=== PATIENT | male | born 1945 | race Caucasian/White ===

== ENCOUNTER 2020-06-16 11:32 | Inpatient (IN) | payer MEDICARE, SELFPAY ==
--- NOTE | ~2020-06-16 | XR_ITS ---
XR chest 2V DATE: 06/16/2020 13:31 INDICATION: Cough, shortness of breath, fever, dizziness, weakness TECHNIQUE: AP and lateral views COMPARISON: None FINDINGS: Normal heart size. Is aortic calcification, ectasia and tortuosity. No hilar or mediastinal enlargement. There is some ill-defined increased density overlying the posterior right mid lung field; CT thorax i s recommended to exclude any pulmonary mass lesion. The lungs otherwise appear clear of infiltrate or consolidation. No pleural effusion or pulmonary vas cular congestion or pneumothorax. Moderate osteopenia. There is some ossification along the coracoclavicular ligament. There is right r otator cuff atrophy. Degenerative spurring of the thoracic spine. IMPRESSION: Ill-defined increased density overlying the posterior right mid lung; CT thorax is recommended to exc lude pulmonary mass lesion Reviewed, dictated and finalized at location A. IMPRESSION: Ill-defined increased density overlying the posterior right mid lung; CT thorax is recommended to exclude pulmonary mass lesion
--- NOTE | ~2020-06-16 | XR_ITS ---
EXAMINATION: XR chest 1V portable DATE: 06/19/2020 16:32 INDICATION: Shortness of breath. COVID-19 pneumonia. TECHNIQUE: A single frontal view of the chest was obtained. COMPARISON: Chest 2 views 06/16/2020, chest CT 06/16/2020 FINDINGS: There are airspace opacities in right mid and lower lung zones and left lower lung zone. No pleural effusion or pneumothorax. The heart size is normal. IMPRESSION: 1. Worsened airspace opacities in right mid and lower lung zones and left lower lung zone, consistent with pneumonia. Reviewed, dictated and finalized at location A. 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
--- NOTE | ~2020-06-16 | CT_ITS ---
EXAMINATION: CT chest wo con DATE: 06/16/2020 17:40 INDICATION: Dizziness. Lung mass. TECHNIQUE: Computed tomography (CT) of the chest was performed without intravenous contrast. The dose -length product was 380.33 mGy-cm. Automated exposure control and iterative reconstruction technique were employed. COMPARISON: None FINDINGS: Heart size normal. No mediastinal lymphadenopathy. There is atherosclerosis. No pleural or pericardial effusion. There are liver cysts. There is patchy parenchymal consolidation of the upper l obes. There is emphysema. No endobronchial lesions. There is dependent atelectasis. There is subtle g roundglass opacification in the left lower lobe. There are few calcified granulomas of the left lung base. Mild thoracic spondylosis. No acute osseous abnormality. IMPRESSION: 1. Patchy bilateral airspace consolidation, most confluent in the right upper lobe, most likely pneum onia. Reviewed, dictated and finalized at location A. IMPRESSION: 1. Patchy bilateral airspace consolidation, most confluent in the right upper l obe, most likely pneumonia.
--- NOTE | ~2020-06-16 | CT_ITS ---
EXAMINATION: CT brain wo con DATE: 06/16/2020 17:39 INDICATION: Dizziness. Lung mass. TECHNIQUE: Computed tomography (CT) of the head was performed without intravenous contrast. The dose- length product was 681.00 mGy-cm. The mA was adjusted according to patient size. Iterative reconstruc tion technique was employed. COMPARISON: None FINDINGS: Mild atrophy. There are scattered mild periventricular and subcortical white matter changes , most likely related to small vessel ischemic disease (microangiopathy). No ventriculomegaly or midl ine shift. Basilar cisterns are patent. Paranasal sinuses and mastoids are pneumatized. No depressed skull fractures. There is intracranial atherosclerosis. No acute hemorrhage, infarction, mass or mass effect. IMPRESSION: 1. No acute intracranial abnormality. Reviewed, dictated and finalized at location A.
[2020-06-16 12:13] VITALS: BP 145/94; PULSE 96; RESP 18; TEMP 37.4; O2SAT 97
--- NOTE | 2020-06-16 12:18 | ECG_ITS ---
Measurements Intervals [place] Rate: 100 P: 118 KS: 155 QRS: 192 QRSD: 77 T: 164 QT: 327 QTc: 422 Interpretive Statements SINUS TACHYCARDIA SHORT RUN OF ATRIAL TACHYCARDIA AND ATRIAL PREMATURE COMPLEXES ARM LEADS REVERSED BORDERLINE ST-T WAVE ABNORMALITY- ANTEROLAT/INF LEADS BASELINE ARTIFACT- I, III, AVR, AVL, AVF ABNORMAL ECG Electronically Signed On 06-16-2020 12:53:57 CDT by Sin Hernandez D.O.
[2020-06-16 12:33] LABS: Basophils Percent Auto 0.2 % (0.2-1.2); Hematocrit 43.2 % (42.0-52.0); Hemoglobin 15.3 g/dL (14.0-18.0); Immature Granulocyte Absolute 0.02 K/mm3 (0.00-0.031); Immature Granulocyte Percent A 0.4 % (0-0.5); Immature Platelet Fraction Pct 4.3 % (0.9-11.2); Lymphocytes Absolute Auto 1.24 K/mm3 (0.9-3.2); Lymphocytes Percent Auto 27.1 % (18.3-44.2); Mean Corpuscular HGB Conc 35.4 g/dl (32-36); Mean Corpuscular Hemoglobin 31.5 pg (26-34); Mean Corpuscular Volume 89.1 fl (80-100); Mean Platelet Volume 10.5 fl (7.4-10.4); Monocytes Absolute Auto 0.5 K/mm3 (0.1-0.6); Monocytes Percent Auto 11.8 % (2.6-8.5); Neutrophils Absolute Auto 2.8 K/mm3 (1.3-6.7); Neutrophils Percent Auto 60.5 % (45.5-73.1); Platelet Count Result 137 k/mm3 (150-375); Red Blood Count 4.85 M/mm3 (4.6-6.20); Red Cell Distribution Width 13.3 % (11.5-14.5); White Blood Count 4.6 K/mm3 (4.5-10.0)
[2020-06-16 12:42] LABS: Alanine Aminotransferase 27 U/L (4-50); Albumin Level 4.5 g/dL (3.5-5.1); Alkaline Phosphatase 61 U/L (38-126); Anion Gap 13 mmol/L (8-16); Aspartate Amino Transferase 30 U/L (17-59); Bilirubin,Total 0.6 mg/dL (0.2-1.3); Blood Urea Nitrogen 11 mg/dL (9-20); Calcium 9.1 mg/dL (8.4-10.2); Carbon Dioxide 31 mmol/L (22-30); Chloride 100 mmol/L (98-107); Estimated CRCL calculation 59 ml/min; Estimated Glomerular Filt Rate > 60; Glucose 171 mg/dL (75-110); Lactic Acid Reflex 1.1 mmol/L (0.7-2.1); Potassium 3.2 mmol/L (3.4-5.0); Sodium 144 mmol/L (137-145)
--- NOTE | 2020-06-16 15:49 | ED.GENADULT ---
HPI - General Adult General Chief complaint: Weakness Stated complaint: vomiting, weakness Time Seen by Provider: 06/16/20 15:40 Source: patient and family Mode of arrival: ambulatory Limitations: no limitations History of Present Illness HPI narrative: Patient 75 years old white male presents with multiple symptoms including dizziness, everything is pains, headache, diaphoresis, nausea, fever, aches from head to toes, coughing and chills started 4 days ago. Patient denies exposure to anybody known to have COVID-19. Patient lives with his who are doing okay. Patient only goes to grocery stores. History of vertigo Related Data Allergies Allergy/AdvReac Type Severity Reaction Status Date / Time TOLACTINE Allergy Uncoded 10/10/13 18:47 Review of Systems Review of Systems: Narrative: CONSTITUTIONAL: Denies fever, chills, or sweats. EYES: Denies visual changes, redness, or discharge. ENT: Denies rhinorrhea, congestion, sore throat, or otalgia. CARDIOVASCULAR: Denies chest pain, palpitations, or edema. RESPIRATORY: Denies cough or dyspnea. GASTROINTESTINAL: Denies abdominal pain, nausea, vomiting, or diarrhea. GENITOURINARY: Denies dysuria or hematuria. SKIN: Denies rash or itching. MUSCULOSKELETAL: Denies back pain, joint pain, or myalgia. NEUROLOGIC: Denies headache, numbness, or weakness. PSYCHIATRIC: Denies anxiety or depression. PMFSH Social History Social History Gender identity (if verbalized by the patient): Male Exam Narrative: Exam Narrative: General appearance: Well-developed, well-nourished, little anxious, at the bedside Skin: Normal color Head: Normocephalic, nontraumatic Eyes: Clear conjunctiva ENT: Oropharynx normal, ears normal, nose normal Neck: Supple, nontender Chest and respiratory: Airway patent, no respiratory distress, no accessory muscle use Heart: Regular rate/rhythm Abdomen: Soft, nontender, no organomegaly, quiet bowel sounds Vascular: Normal peripheral pulses, normal capillary refill. 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, no gross motor deficit Course Vital Signs Vital signs: Vital Signs Temperature 37.4 C 06/16/20 12:13 Pulse Rate 96 06/16/20 12:13 Respiratory Rate 18 06/16/20 12:13 Blood Pressure 145/94 H 06/16/20 12:13 Pulse Oximetry 97 06/16/20 12:13 Temperature 37.4 C 06/16/20 12:13 Pulse Rate 90 06/16/20 17:18 Respiratory Rate 18 06/16/20 17:18 Blood Pressure 135/64 06/16/20 17:18 Pulse Oximetry 94 06/16/20 17:18 Medical Decision Making Vital Signs Vital Signs: Vital Signs Temperature 37.4 C 06/16/20 12:13 Pulse Rate 96 06/16/20 12:13 Respiratory Rate 18 06/16/20 12:13 Blood Pressure 145/94 H 06/16/20 12:13 Pulse Oximetry 97 06/16/20 12:13 Temperature 37.4 C 06/16/20 12:13 Pulse Rate 90 06/16/20 17:18 Respiratory Rate 18 06/16/20 17:18 Blood Pressure 135/64 06/16/20 17:18 Pulse Oximetry 94 06/16/20 17:18 Lab Data Result diagrams: 06/16/20 12:21 06/16/20 12:21 Labs: Lab Results 06/16/20 06/16/20 06/16/20 Range/Units 12:21 12:21 12:21 WBC 4.6 (4.5-10.0) K/mm3 RBC 4.85 (4.6-6.20) M/mm3 Hgb 15.3 (14.0-18.0) g/dL Hct 43.2 (42.0-52.0) % MCV 89.1 (80-100) fl MCH 31.5 (26-34) pg MCHC 35.4 (32-36) g/dl RDW 13.3 (11.5-14.5) % Plt Count 137 L (150-375) k/mm3 MPV 10.5 H (7.4-10.4) fl Immature Gran % (Auto) 0.4 (0-0.5) % Neut % (Auto) 60.5 (45.5-73.1) % Lymph % (Auto) 27.1 (18.3-44.2) % M
[2020-06-16] MEDS: MECLIZINE HCL 25 MG TABLET PO (16:15)
[2020-06-16] MEDS: diazePAM INJ (*CRX) 10 MG/2 ML SYRINGE 5 MG IV PUSH (16:15)
[2020-06-16] MEDS: ONDANSETRON HCL ODT 4 MG TABLET PO (16:15)
[2020-06-16 17:11] LABS: Troponin I < 0.012 ng/mL (0.000-0.034)
[2020-06-16 17:18] VITALS: BP 135/64; PULSE 90; RESP 18; O2SAT 94
[2020-06-16 18:13] LABS: Add Urine Microscopic? YES; Appearance Urine Clear (Clear); Bilirubin Urine Negative (Negative); Blood Urine Negative (Negative); Color Urine Yellow (Yellow); Glucose Urine UA 1+ mg/dL (Negative); Ketones Urine Negative (Negative); Leukocyte Esterase Ur Negative LEU/UL (Negative); Mucus Urine Few /lpf; Nitrate Urine Negative (Negative); Protein Urine 2+ mg/dL (Negative); Specific Grav Ur 1.018 (1.001-1.035); WBC Urine 0-3 /hpf
[2020-06-16] MEDS: POTASSIUM CHLORIDE 20 MEQ TABLET 40 MEQ PO (19:42)
[2020-06-16 20:40] VITALS: BP 140/86; PULSE 75; RESP 18; O2SAT 95
[2020-06-16 20:45] VITALS: BP 175/97; PULSE 91; RESP 18; TEMP 36.9; O2SAT 96; BMI 30.3
--- NOTE | 2020-06-16 21:08 | PM.IMHP ---
H&P: HPI History of Present Illness Date/Time: 06/16/20 21:08 Chief complaint: body aches, fever and dizziness Narrative: Demond Acevedo is a 75 year old male with a past medical history of benign positional vertigo, obstructive sleep apnea, hypertension and hyperlipidemia who presented to the ER with multiple complaints. The patient reports that 4 days ago he developed sudden onset of vertigo with associated nausea, vomiting and diarrhea. He reports that when he usually gets vertigo he also becomes diaphoretic and lightheaded. On that same day he also developed generalized body aches,, the temperature of 99.2? and a dry nonproductive cough. He also developed a right-sided headache that was only relieved with Excedrin. He has been taking Excedrin b.i.d. to relieve his headache. He has been having chills for 4 days as well. His vertigo symptoms have been intermittent in her worse with activity. He has become so weak that he reports he is having trouble doing anything. He has not had any further diarrhea. He is still having intermittent nausea. He is currently in the area camping. He lives down around [facility]. He has been at his camping trailer for the last 5 days. He denies any known COVID-19 exposures but has been going out to the store and had they necessary stops in route to his camping site for supplies. He denies any chest pain. He denies any significant shortness of breath. He reports that he feels terrible and he thought that he may if he did not come to the ER when he did. He denies any loss of sense of taste or smell. He has had significant decrease in appetite. He has not noticed any visual changes. He has been unable to use his CPAP due to his acute symptoms. He spilled boiling water on his foot a couple of weeks ago. He has been treating it with triple antibiotic ointment. The top of the foot is scabbed but there is no erythema. He denies any drainage from the area. Review of Systems Review of Systems: Narrative: 12 systems were reviewed with pertinent positives and negatives per HPI. Except as documented in the HPI, all other systems were reviewed and are negative. [facility] Past Medical History Medical History (Updated 06/17/20 @ 04:43 by Thais Davenport DO) Abdominal aortic aneurysm (AAA) Followed at the [facility] Cataracts, bilateral Will need cataract surgery in the near future per his report Essential hypertension Hyperlipidemia Incisional hernia Left abdominal wall Obstructive sleep apnea Surgical History Surgical History (Updated 06/17/20 @ 04:34 by Thais Davenport DO) History of ankle surgery Multiple left ankle surgeries due to trauma complicated by reflex sympathetic dystrophy for which he had a open abdominal surgery History of hand surgery Following trauma during the [place] war History of lumbar surgery Family History Family History (Updated 06/17/20 @ 04:37 by Thais Davenport DO) Father , At 60 years old Acute myocardial infarction Hypertension Lung cancer Mother , At 64 years old Hypertension Lung cancer Breast cancer Sibling Liver disease Due to drug use Heart disease Cancer Social History Social History (Updated 06/17/20 @ 04:41 by Thais Davenport DO) Social History: He lives in in [facility]. He and his had been for over 20 years. He moved back in with his in the last couple of years to help provide care she is disabled. He has 1 daughter. He is a former smoker. He used to smoke up to 2 packs of cigarettes per day for 20 years but quit smoking in the . 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 He had 3 siblings. Two sisters and 1 brother all are . Primary care physician: [facility] in [facility]. Code status: Full code Surrogate decision maker: Izabel Kaur (daughter)
[2020-06-16] MEDS: LACTATED RINGERS 1,000 ML 125 ML IV CONT (21:19)
--- NOTE | 2020-06-16 21:36 | ADMGEN ---
This patient, Demond Acevedo, was admitted to 3 [facility] Surg Room 332-01. Patient/family oriented to hospital policies and general routines including ID bracelet, bed and alarms, visiting hours, pain management, procedures, bathroom and other care routines, personal items, smoking policy, room service/diet, and visiting hours. Information on how to activate the Rapid Response Team has been discussed. Patient/Family are encouraged to report perceived risks to care and to ask questions if they do not understand what they are told or what they should do.
[2020-06-17] VITALS (10 sets, daily range): BP systolic 101–156; BP diastolic 68–91; PULSE 83–95; RESP 18; TEMP 36.3–37.9; O2SAT 92–96
[2020-06-17] MEDS: MECLIZINE HCL 25 MG TABLET PO (01:38)
[2020-06-17 01:41] LABS: Influenza Control Positive
[2020-06-17] MEDS: LACTATED RINGERS 1,000 ML 125 ML IV CONT ×3 (05:35→23:26)
[2020-06-17 06:17] LABS: Hematocrit 40.2 % (42.0-52.0); Hemoglobin 14.2 g/dL (14.0-18.0); Immature Platelet Fraction Pct 3.7 % (0.9-11.2); Mean Corpuscular HGB Conc 35.3 g/dl (32-36); Mean Corpuscular Hemoglobin 30.7 pg (26-34); Mean Corpuscular Volume 86.8 fl (80-100); Mean Platelet Volume 10.7 fl (7.4-10.4); Platelet Count Result 108 k/mm3 (150-375); Red Blood Count 4.63 M/mm3 (4.6-6.20); Red Cell Distribution Width 13.1 % (11.5-14.5); White Blood Count 4.5 K/mm3 (4.5-10.0)
[2020-06-17 06:28] LABS: Anion Gap 7 mmol/L (8-16); Blood Urea Nitrogen 13 mg/dL (9-20); Calcium 8.1 mg/dL (8.4-10.2); Carbon Dioxide 28 mmol/L (22-30); Chloride 102 mmol/L (98-107); Estimated CRCL calculation 71 ml/min; Estimated Glomerular Filt Rate > 60; Glucose 154 mg/dL (75-110); Potassium 3.6 mmol/L (3.4-5.0); Sodium 137 mmol/L (137-145)
[2020-06-17] MEDS: ENOXAPARIN 40 MG/0.4 ML SYRINGE SUB-Q (07:57)
[2020-06-17] MEDS: lisinopriL 20 MG TABLET 40 MG PO (07:57)
[2020-06-17] MEDS: amLODIPine BESYLATE 5 MG TABLET 10 MG PO (07:57)
[2020-06-17] MEDS: SILVER SULFADIAZINE 1% CR 50 GM JAR (*BKC) 1 APPLIC TOPICAL ×2 (07:58→21:29)
[2020-06-17] MEDS: ALBUTEROL SULFATE (*SP) AEROSOL 1 PUFF 6 PUFF INHALATION ×4 (08:50→20:29)
[2020-06-17] MEDS: ACETAMINOPHEN 325 MG TABLET 650 MG PO (09:57)
--- NOTE | 2020-06-17 10:13 | PM.IMPN ---
Progress Note: A&P Assessment and Plan (1) Pneumonia: Qualifiers: Laterality: bilateral Lung location: unspecified part of lung Pneumonia type: due to unspecified organism Qualified Code(s): J18.9 - Pneumonia, unspecified organism Code(s): J18.9 - Pneumonia, unspecified organism Status: Acute Assessment and Plan: Day #1 azithromycin and ceftriaxone Flu A negative SARS-CoV-2 pending Continue isolation (2) Acute hypokalemia: Code(s): E87.6 - Hypokalemia Status: Acute Assessment and Plan: resolved after supplementation (3) Vertigo: Code(s): R42 - Dizziness and giddiness Status: Acute Assessment and Plan: resolved (4) Wound of left foot: Code(s): S91.302A - Unspecified open wound, left foot, initial encounter Status: Acute Assessment and Plan: superficial no evidence for infection (5) Essential hypertension: Code(s): I10 - Essential (primary) hypertension Status: Inactive Assessment and Plan: Continue amlodipine and lisinopril Monitor Subjective Date/time seen: 06/17/20 10:13 Interval history: 06/17: Feeling better. No much appetite. Ate only oatmeal for breakfast. Tired. Not much taste to food. No n/v, diarrhea. Denied pain. Review of Systems Review of Systems: All systems reviewed & are unremarkable except as noted in HPI and below Exam Narrative: Exam Narrative: HEENT: EOMI, PERRL, sclerae nonicteric, pharyngeal mucosa pink and intact NECK: No JVD, adenopathy, or thyromegaly CHEST: Slighly coarse BS. Normal effort. HEART: NL S1/S2, regular, no murmur ABDOMEN: BS+, soft, nontender, no mass, no bruits EXTREMITIES: No cyanosis, edema, or clubbing NEUROLOGIC: CN intact and symmetric to inspection. MUSCULOSKELETAL: Tone and strength symmetric. PSYCH: Alert. Oriented to person, place, and time. Objective Data Vital Signs Vital Signs: Vital Signs - 24 hr 06/16/20 12:13 06/16/20 17:18 06/16/20 20:40 Temperature 99.4 F Pulse Rate 96 90 75 Respiratory Rate 18 18 18 Blood Pressure 145/94 H 135/64 140/86 Pulse Oximetry 97 94 95 06/16/20 20:45 06/17/20 00:00 06/17/20 04:00 Temperature 98.4 F 98.4 F 98.3 F Pulse Rate 91 95 90 Respiratory Rate 18 18 18 Blood Pressure 175/97 H 146/84 H 156/91 H Pulse Oximetry 96 92 95 06/17/20 08:00 06/17/20 08:55 06/17/20 09:57 Temperature 100.2 F H 100.3 F H Pulse Rate 88 Respiratory Rate 18 Blood Pressure 133/86 Pulse Oximetry 96 93 Intake/Output Intake/Output: Intake & Output 06/14/20 06/15/20 06/16/20 06/17/20 23:59 23:59 23:59 23:59 Intake Total 50 1150 Output Total 450 Balance 50 700 Meds/Results Medications: Active Medications Generic Name Dose Route Start Last Admin Trade Name Freq PRN Reason Stop Dose Admin Acetaminophen 650 mg 06/17/20 04:23 06/17/20 09:57 Acetaminophen 325 Mg Tablet PO 650 mg Q4H PRN Administration Mild Pain (1-3) or Fever Albuterol 6 puff 06/17/20 08:00 06/17/20 08:50 Albuterol Sulfate (*Sp) Aerosol 1 Puff INHALATION 6 puff QIDRT YA Administration Amlodipine Besylate 10 mg 06/17/20 09:00 06/17/20 07:57 Amlodipine Besylate 5 Mg Tablet PO 10 mg DAILY YA Administration Atorvastatin Calcium 40 mg 06/17/20 21:00 Atorvastatin 40 Mg Tablet PO HS YA Enoxaparin Sodium 40 mg 06/17/20 09:00 06/17/20 07:57 Enoxaparin 40 Mg/0.4 Ml Syringe SUB-Q 40 mg DAILY YA Administration Lactated Ringer's 1,000 mls @ 125 mls/hr 06/16/20 18:50 06/17/20 05:35 Lr - Lactated Ringers Iv IV CONT 125 mls/hr .Q8H YA Administration Ceftriaxone Sodium/Dextrose 1 gm in 50 mls @ 100 mls/hr 06/17/20 19:00 Rocephin 1 Gm/D5w 50 Ml IVPB DAILY@1900 [facility] Azithromycin 500 mg in 250 mls @ 250 mls/hr 06/17/20 20:00 Zithromax IVPB DAILY@2000 [facility] Lisinopril 20 mg 06/17/20 21:00 Lisinopril 20 Mg Tablet PO
[2020-06-17 15:24] LABS: SARS-CoV-2 RNA PCR Positive
[2020-06-17] MEDS: ATORVASTATIN 40 MG TABLET PO (21:03)
[2020-06-17] MEDS: lisinopriL 20 MG TABLET PO (21:03)
[2020-06-18] VITALS (11 sets, daily range): BP systolic 139–170; BP diastolic 43–96; PULSE 80–98; RESP 18–24; TEMP 36.6–38.8; O2SAT 90–96
--- NOTE | 2020-06-18 01:49 | PC.NURSE ---
Daylight Savings Time For Daylight Savings Time Ending in the Fall - Clocks are moved back. For Daylight Savings Time Beginning in the Spring - Clocks are moved ahead. For [facility], the time of change occurs at 0200 hrs. Time is taken from the oil prospecting observer. This entry on the patient's chart recognizes the change in time reflected during documentation. Example: 2 entries for vital signs may be charted for 0200 hrs.
[2020-06-18] MEDS: LACTATED RINGERS 1,000 ML 125 ML IV CONT (05:01)
[2020-06-18] MEDS: MECLIZINE HCL 12.5 MG TABLET PO (05:41)
[2020-06-18 06:30] LABS: Basophils Percent Auto 0.2 % (0.2-1.2); Eosinophils Percent Auto 0.2 % (0-4.4); Hematocrit 37.6 % (42.0-52.0); Hemoglobin 13.4 g/dL (14.0-18.0); Immature Granulocyte Absolute 0.01 K/mm3 (0.00-0.031); Immature Granulocyte Percent A 0.2 % (0-0.5); Immature Platelet Fraction Pct 4.3 % (0.9-11.2); Lymphocytes Absolute Auto 1.25 K/mm3 (0.9-3.2); Lymphocytes Percent Auto 28.3 % (18.3-44.2); Mean Corpuscular HGB Conc 35.6 g/dl (32-36); Mean Corpuscular Hemoglobin 31.2 pg (26-34); Mean Corpuscular Volume 87.6 fl (80-100); Mean Platelet Volume 10.7 fl (7.4-10.4); Monocytes Absolute Auto 0.4 K/mm3 (0.1-0.6); Monocytes Percent Auto 8.4 % (2.6-8.5); Neutrophils Absolute Auto 2.8 K/mm3 (1.3-6.7); Neutrophils Percent Auto 62.7 % (45.5-73.1); Platelet Count Result 108 k/mm3 (150-375); Red Blood Count 4.29 M/mm3 (4.6-6.20); White Blood Count 4.4 K/mm3 (4.5-10.0)
[2020-06-18 06:40] LABS: D Dimer 2.64 ug/mL (<0.48)
[2020-06-18 06:48] LABS: Alanine Aminotransferase 22 U/L (4-50); Albumin Level 3.4 g/dL (3.5-5.1); Alkaline Phosphatase 54 U/L (38-126); Anion Gap 9 mmol/L (8-16); Aspartate Amino Transferase 29 U/L (17-59); Bilirubin,Total 0.6 mg/dL (0.2-1.3); Blood Urea Nitrogen 12 mg/dL (9-20); CRP 3.2 mg/dL (<1.0); Calcium 8.1 mg/dL (8.4-10.2); Carbon Dioxide 28 mmol/L (22-30); Chloride 100 mmol/L (98-107); Estimated CRCL calculation 64 ml/min; Estimated Glomerular Filt Rate > 60; Glucose 206 mg/dL (75-110); Lactate Dehydrogenase 491 U/L (313-618); Sodium 137 mmol/L (137-145)
[2020-06-18 08:13] LABS: Hemoglobin A1C 6.5 % (<5.7)
[2020-06-18] MEDS: POTASSIUM CHLORIDE 20 MEQ TABLET 40 MEQ PO (08:25)
[2020-06-18] MEDS: SILVER SULFADIAZINE 1% CR 50 GM JAR (*BKC) 1 APPLIC TOPICAL ×2 (08:25→20:59)
[2020-06-18] MEDS: ENOXAPARIN 40 MG/0.4 ML SYRINGE SUB-Q (08:25)
[2020-06-18] MEDS: amLODIPine BESYLATE 5 MG TABLET 10 MG PO (08:26)
[2020-06-18] MEDS: lisinopriL 20 MG TABLET 40 MG PO (08:26)
[2020-06-18] MEDS: INSULIN ASPART (*BKC) 100 UNITS/ML SUB-Q (08:32)
[2020-06-18] MEDS: ACETAMINOPHEN 325 MG TABLET 650 MG PO ×2 (08:35→16:43)
[2020-06-18] MEDS: ALBUTEROL SULFATE (*SP) AEROSOL 1 PUFF 6 PUFF INHALATION ×3 (09:46→20:40)
--- NOTE | 2020-06-18 13:53 | PM.IMPN ---
Progress Note: A&P Assessment and Plan (1) Pneumonia due to COVID-19 virus: Code(s): U07.1 - COVID-19; J12.89 - Other viral pneumonia Status: Acute Assessment and Plan: -----Found to be covid positive so abx have been stopped. He is not having any SOB or requiring any o2. No indication for Remdesivir or Decadron at this time but will monitor his oxygen needs. I spoke with the daughter, Izabel, about him possibly being discharged the next day or 2 since he is not on oxygen and she states they live a couple hours away and she is unable to pick him up because she is immunocompromised. The patient does not think he is strong enough to drive back to [place], [place]. He has a camper here but he just when her eyes did and does not have any running water. The daughter is going to try to make arrangements (2) Generalized weakness: Code(s): R53.1 - Weakness Status: Acute Assessment and Plan: -----will order PT and OT (3) Pneumonia: Qualifiers: Laterality: bilateral Lung location: unspecified part of lung Pneumonia type: due to unspecified organism Qualified Code(s): J18.9 - Pneumonia, unspecified organism Code(s): J18.9 - Pneumonia, unspecified organism Status: Acute Assessment and Plan: -----due to above (4) Acute hypokalemia: Code(s): E87.6 - Hypokalemia Status: Acute Assessment and Plan: ------low again today, replaced. Monitor with daily labs. (5) Vertigo: Code(s): R42 - Dizziness and giddiness Status: Acute Assessment and Plan: -------resolved (6) Wound of left foot: Code(s): S91.302A - Unspecified open wound, left foot, initial encounter Status: Acute Assessment and Plan: -------superficial, no evidence for infection (7) Essential hypertension: Code(s): I10 - Essential (primary) hypertension Status: Inactive Assessment and Plan: -----last blood pressure 139/72. Continue amlodipine and lisinopril Time Spent With Patient Time with patient: 25 - 35 minutes Subjective Date/time seen: 06/18/20 13:53 Interval history: Pt is a 75 y/o male here for COVID. Pt was seen today and is doing fairely well. He feels really weak and tired but denies respiratory symptoms. He states he is not from this area and lives in [place], [place] and has to drive back there after discharge and he is worried he is going to be too weak for that. No cp. eating and drinking well. Review of Systems Review of Systems: All systems reviewed & are unremarkable except as noted in HPI and below Exam Narrative: Exam Narrative: General: Well developed well nourished patient in NAD HEENT: normocephalic Neck: supple Neuro: Alert and oriented x4 CV:RRR Resp:CTA. Note a disposable stethoscope was used which lowers sensativity. Abd: Soft, non distended. No pain to palpation. Positive bowel sounds Extremities: No swelling, erythema, or pain to palpation. Objective Data Vital Signs Vital Signs: Vital Signs - 24 hr 06/17/20 16:00 06/17/20 20:00 06/17/20 20:30 Temperature 97.4 F L 98.2 F Pulse Rate 88 95 87 Respiratory Rate 18 18 18 Blood Pressure 125/68 141/84 H Pulse Oximetry 95 92 96 06/18/20 00:00 06/18/20 04:00 06/18/20 08:00 Temperature 98 F 98.3 F 100.3 F H Pulse Rate 91 94 92 Respiratory Rate 18 18 18 Blood Pressure 149/43 H 170/83 H 160/80 H Pulse Oximetry 93 92 92 06/18/20 08:35 06/18/20 09:35 06/18/20 12:00 Temperature 100.3 F H 98.3 F 98.3 F Pulse Rate 88 Respiratory Rate 18 Blood Pressure 139/72 Pulse Oximetry 95 Intake/Output Intake/Output: Intake & Output 06/15/20 06/16/20 06/17/20 06/18/20 23:59 23:59 23:59 22:59 Intake Total 50 4260 1899 Output Total 450 1350 Balance 50 3810 549 Meds/Results Medications: Active Medications Generic Name Dose Route Start Last Admin Trade Name Delfinoq ILDAN Reas
[2020-06-18 15:03] LABS: Glucose Point of Care 174 (65-105)
[2020-06-18 16:26] LABS: Glucose Point of Care 218 (65-105)
[2020-06-18 17:43] LABS: Glucose Point of Care 149 (65-105)
[2020-06-18] MEDS: ONDANSETRON INJ 4 MG/2 ML VIAL IV PUSH (18:36)
[2020-06-18] MEDS: ATORVASTATIN 40 MG TABLET PO (20:59)
[2020-06-18] MEDS: lisinopriL 20 MG TABLET PO (20:59)
[2020-06-18 21:31] LABS: Glucose Point of Care 185 (65-105)
--- NOTE | 2020-06-18 22:17 | PC.NURSE ---
Patient reported he was having difficulty breathing. Oxygen saturation 83% on room air. Nasal canula placed at 2 liters brought oxygen saturation up to 89%. Oxygen increased to 3 liters. Oxygen saturation at 3 liters 94%.
[2020-06-19] VITALS (9 sets, daily range): BP systolic 140–178; BP diastolic 73–86; PULSE 51–105; RESP 18–22; TEMP 36.7–38.8; O2SAT 88–96
[2020-06-19] MEDS: ONDANSETRON INJ 4 MG/2 ML VIAL IV PUSH ×2 (02:10→10:57)
[2020-06-19] MEDS: ACETAMINOPHEN 325 MG TABLET 650 MG PO (02:56)
--- NOTE | 2020-06-19 03:15 | PC.NURSE ---
Patient took off oxygen. Oxygen saturation 94% on room air. Patient requested to be off oxygen unless his saturation level dropped again. Patient left on room air. Will continue to monitor.
[2020-06-19 06:42] LABS: Hematocrit 37.7 % (42.0-52.0); Hemoglobin 13.4 g/dL (14.0-18.0); Immature Platelet Fraction Pct 5.8 % (0.9-11.2); Mean Corpuscular HGB Conc 35.5 g/dl (32-36); Mean Corpuscular Hemoglobin 31.5 pg (26-34); Mean Corpuscular Volume 88.7 fl (80-100); Mean Platelet Volume 10.6 fl (7.4-10.4); Platelet Count Result 103 k/mm3 (150-375); Red Blood Count 4.25 M/mm3 (4.6-6.20); White Blood Count 4.3 K/mm3 (4.5-10.0)
[2020-06-19 06:59] LABS: Alanine Aminotransferase 22 U/L (4-50); Albumin Level 3.7 g/dL (3.5-5.1); Alkaline Phosphatase 48 U/L (38-126); Anion Gap 8 mmol/L (8-16); Aspartate Amino Transferase 34 U/L (17-59); Bilirubin,Total 0.6 mg/dL (0.2-1.3); Blood Urea Nitrogen 13 mg/dL (9-20); Calcium 8.1 mg/dL (8.4-10.2); Carbon Dioxide 29 mmol/L (22-30); Chloride 100 mmol/L (98-107); Estimated CRCL calculation 59 ml/min; Estimated Glomerular Filt Rate > 60; Glucose 223 mg/dL (75-110); Potassium 3.2 mmol/L (3.4-5.0); Sodium 137 mmol/L (137-145)
[2020-06-19] MEDS: ALBUTEROL SULFATE (*SP) AEROSOL 1 PUFF 6 PUFF INHALATION ×4 (08:45→21:33)
[2020-06-19] MEDS: lisinopriL 20 MG TABLET 40 MG PO (09:27)
[2020-06-19] MEDS: amLODIPine BESYLATE 5 MG TABLET 10 MG PO (09:27)
[2020-06-19] MEDS: ENOXAPARIN 40 MG/0.4 ML SYRINGE SUB-Q (09:28)
[2020-06-19] MEDS: SILVER SULFADIAZINE 1% CR 50 GM JAR (*BKC) 1 APPLIC TOPICAL ×2 (09:35→20:10)
--- NOTE | 2020-06-19 11:03 | PM.IMPN ---
Progress Note: A&P Assessment and Plan (1) Pneumonia due to COVID-19 virus: Code(s): U07.1 - COVID-19; J12.89 - Other viral pneumonia Status: Acute Assessment and Plan: -----COVID positive, not on any o2 at this time. The nursing staff state that he usually uses a cpap at night so he does desat a bit at night but doesn't want to wear o2. I have explained to him the importance. When he is awake he does not require o2. He is not having any SOB, CP, or DEL VAL[place]. No indication for Remdesivir or Decadron at this time but will monitor his oxygen needs. I spoke with the daughter, Izabel, about him possibly being discharged the next day or 2 since he is not on oxygen and she states they live a couple hours away and she is unable to pick him up because she is immunocompromised. The patient does not think he is strong enough to drive back to [place], [place]. He has a camper here but just winterized it and does not have any running water. The daughter is going to try to make arrangements. (2) Generalized weakness: Code(s): R53.1 - Weakness Status: Acute Assessment and Plan: -----Pt states he feels very weak, PT note reviewed and looks like he is min assist. Continue with PT. (3) Pneumonia: Qualifiers: Laterality: bilateral Lung location: unspecified part of lung Pneumonia type: due to unspecified organism Qualified Code(s): J18.9 - Pneumonia, unspecified organism Code(s): J18.9 - Pneumonia, unspecified organism Status: Acute Assessment and Plan: -----due to above (4) Acute hypokalemia: Code(s): E87.6 - Hypokalemia Status: Acute Assessment and Plan: ------low again today, replaced. Likely d/t decreased appetite. will order mag for tomorrow. Monitor with daily labs. (5) Vertigo: Code(s): R42 - Dizziness and giddiness Status: Acute Assessment and Plan: -------resolved (6) Wound of left foot: Code(s): S91.302A - Unspecified open wound, left foot, initial encounter Status: Acute Assessment and Plan: -------superficial, no evidence for infection (7) Essential hypertension: Code(s): I10 - Essential (primary) hypertension Status: Inactive Assessment and Plan: -----last blood pressure 149/73. Continue amlodipine and lisinopril Subjective Date/time seen: 06/19/20 11:03 Interval history: Pt is a 75 y/o male here for COVID. Pt was seen today and is doing fairely well. He feels really weak and tired but denies respiratory symptoms. No CP. He was throwing up last night. He said it took 3 people to get him out of bed and usually he is independent. He says at times he feels as if the room is spinning and he gets very dizzy. He is still not eating much. He states he is not from this area and lives in [place], [place] and has to drive back there after discharge and he is worried he is going to be too weak for that. Spoke with daughter, izabel, who is going to try and find accommodations here. She is unable to come get him because she is immunosupressed herself. Exam Narrative: Exam Narrative: General: Well developed well nourished patient in NAD HEENT: normocephalic Neck: supple Neuro: Alert and oriented x4 CV:RRR Resp:CTA. Note a disposable stethoscope was used which lowers sensativity. Abd: Soft, non distended. No pain to palpation. Positive bowel sounds Extremities: No swelling, erythema, or pain to palpation. Objective Data Vital Signs Vital Signs: Vital Signs - 24 hr 06/18/20 12:00 06/18/20 16:00 06/18/20 16:43 Temperature 98.3 F 101.8 F H 101.8 F H Pulse Rate 88 98 Respiratory Rate 18 20 Blood Pressure 139/72 152/96 H Pulse Oximetry 95 96 06/18/20 17:43 06/18/20 20:00 06/18/20 20:40 Temperature 100.3 F H 98.2 F Pulse Rate 80 92 Respiratory Rate 18 24 H Blood Pressure 153/92 H Pulse Oximetry 91 90 06/19/20 00:00 06/19/20
[2020-06-19 12:23] LABS: Glucose Point of Care 193 (65-105)
[2020-06-19] MEDS: POTASSIUM CHLORIDE 20 MEQ TABLET 40 MEQ PO (12:33)
[2020-06-19 12:45] LABS: Glucose Point of Care 174 (65-105)
[2020-06-19] MEDS: MECLIZINE HCL 12.5 MG TABLET PO (14:47)
[2020-06-19 17:28] LABS: Glucose Point of Care 223 (65-105)
[2020-06-19] MEDS: REMDESIVIR 200 MG/NS 250 ML 200 MG/250 ML BAG 175 MG IVPB (17:37)
[2020-06-19] MEDS: INSULIN ASPART (*BKC) 100 UNITS/ML SUB-Q (17:38)
[2020-06-19] MEDS: DEXAMETHASONE SOD PHOS INJ 4 MG/ML VIAL 6 MG IV PUSH (17:38)
[2020-06-19] MEDS: ATORVASTATIN 40 MG TABLET PO (20:04)
[2020-06-19] MEDS: lisinopriL 20 MG TABLET PO (20:04)
[2020-06-19 21:00] LABS: Glucose Point of Care 234 (65-105)
[2020-06-20] VITALS (8 sets, daily range): BP systolic 130–142; BP diastolic 70–89; PULSE 63–96; RESP 18–20; TEMP 36.4–37; O2SAT 91–93
[2020-06-20 06:33] LABS: Hematocrit 39.2 % (42.0-52.0); Immature Granulocyte Absolute 0.01 K/mm3 (0.00-0.031); Immature Granulocyte Percent A 0.2 % (0-0.5); Immature Platelet Fraction Pct 7.1 % (0.9-11.2); Mean Corpuscular HGB Conc 35.7 g/dl (32-36); Mean Corpuscular Hemoglobin 31.4 pg (26-34); Mean Corpuscular Volume 87.9 fl (80-100); Mean Platelet Volume 11.3 fl (7.4-10.4); Monocytes Absolute Auto 0.4 K/mm3 (0.1-0.6); Monocytes Percent Auto 6.7 % (2.6-8.5); Neutrophils Absolute Auto 4.2 K/mm3 (1.3-6.7); Neutrophils Percent Auto 75.1 % (45.5-73.1); Platelet Count Result 115 k/mm3 (150-375); Red Blood Count 4.46 M/mm3 (4.6-6.20); Red Cell Distribution Width 12.8 % (11.5-14.5); White Blood Count 5.6 K/mm3 (4.5-10.0)
[2020-06-20 06:41] LABS: Alanine Aminotransferase 22 U/L (4-50); Albumin Level 3.6 g/dL (3.5-5.1); Alkaline Phosphatase 46 U/L (38-126); Anion Gap 10 mmol/L (8-16); Aspartate Amino Transferase 38 U/L (17-59); Bilirubin,Total 0.5 mg/dL (0.2-1.3); Blood Urea Nitrogen 16 mg/dL (9-20); Calcium 8.1 mg/dL (8.4-10.2); Carbon Dioxide 28 mmol/L (22-30); Chloride 100 mmol/L (98-107); Estimated CRCL calculation 59 ml/min; Estimated Glomerular Filt Rate > 60; Glucose 245 mg/dL (75-110); Potassium 3.6 mmol/L (3.4-5.0); Sodium 138 mmol/L (137-145)
[2020-06-20] MEDS: ALBUTEROL SULFATE (*SP) AEROSOL 1 PUFF 6 PUFF INHALATION ×4 (08:35→20:49)
[2020-06-20] MEDS: lisinopriL 20 MG TABLET 40 MG PO (08:42)
[2020-06-20] MEDS: amLODIPine BESYLATE 5 MG TABLET 10 MG PO (08:42)
[2020-06-20] MEDS: DEXAMETHASONE SOD PHOS INJ 4 MG/ML VIAL 6 MG IV PUSH (08:48)
[2020-06-20] MEDS: ENOXAPARIN 40 MG/0.4 ML SYRINGE SUB-Q (08:48)
[2020-06-20] MEDS: SILVER SULFADIAZINE 1% CR 50 GM JAR (*BKC) 1 APPLIC TOPICAL ×2 (08:51→21:38)
[2020-06-20] MEDS: INSULIN ASPART (*BKC) 100 UNITS/ML SUB-Q ×3 (08:56→17:33)
[2020-06-20 10:05] LABS: Glucose Point of Care 233 (65-105)
[2020-06-20 12:04] LABS: Glucose Point of Care 228 (65-105)
--- NOTE | 2020-06-20 16:46 | PM.IMPN ---
Progress Note: A&P Assessment and Plan (1) Pneumonia due to COVID-19 virus: Code(s): U07.1 - COVID-19; J12.89 - Other viral pneumonia Status: Acute Assessment and Plan: COVID positive 06/16/20. CT shows patchy bilateral airspace disease. Therapy initiated last night when he became hypoxic. Continue remdesivir (day 2) and dexamethasone (day 2). Continue supportive therapy with tylenol for fevers, albuterol. Monitor oxygen saturations. Add incentive spirometry. (2) Acute respiratory failure: Qualifiers: Respiratory failure complication: hypoxia Qualified Code(s): J96.01 - Acute respiratory failure with hypoxia Code(s): J96.00 - Acute respiratory failure, unspecified whether with hypoxia or hypercapnia Status: Acute Assessment and Plan: Secondary to above. Wean O2 as tolerated to keep saturations > 90%. (3) Generalized weakness: Code(s): R53.1 - Weakness Status: Acute Assessment and Plan: Suspect secondary to above. Continue PT/OT. (4) Acute hypokalemia: Code(s): E87.6 - Hypokalemia Status: Acute Assessment and Plan: Stable today. Monitor BMP + Mg and replace as needed. (5) Essential hypertension: Code(s): I10 - Essential (primary) hypertension Status: Chronic Assessment and Plan: Stable, last 140/80 maintained on his home amlodipine and lisinopril. Monitor BP and adjust treatment as needed. (6) Discharge planning issues: Code(s): Z02.9 - Encounter for administrative examinations, unspecified Status: Acute Assessment and Plan: Patient lives in [place], [place]. Daughter notes she is unable to transport him home at discharge due to him being COVID positive and her being immunosuppressed. Patient and family will need to work together to arrange someone to transport him home. Subjective Date/time seen: 06/20/20 1215 Interval history: Mr. Acevedo is a 75yo M admitted for acute respiratory failure with hypoxia secondary to COVID-19. He feels weak and tired. He reports his breathing feels bad today. He denies chest pain. He has tolerated some oral intake without nausea or vomiting. Review of Systems Review of Systems: All systems reviewed & are unremarkable except as noted in HPI and below Exam Narrative: Exam Narrative: General: Male sitting on edge of bed working with therapy in no acute distress. HEENT: Normocephalic, EOMI, oral mucosa moist. Cardiovascular: Rate and rhythm are regular. Respiratory: Decreased breath sounds AIDA. Respirations are even and nonlabored. Tolerating 2 L nasal cannula. Abdomen: Soft, non-tender, non-distended, bowel sounds present. Extremities: Peripheral pulses intact. No edema. Neuro: No focal neurological deficits. Speech is clear. Objective Data Vital Signs Vital Signs: Last Vital Signs Temp 98.3 F 06/20/20 16:00 Pulse 63 06/20/20 16:00 Resp 18 06/20/20 16:00 BP 140/80 06/20/20 16:00 Pulse Ox 92 06/20/20 16:00 Intake/Output Intake/Output: Intake & Output 06/18/20 06/18/20 06/19/20 06/20/20 00:59 23:59 23:59 23:59 Intake Total 1700 880 Output Total 1275 900 Balance 425 -20 Meds/Results Medications: Active Medications Generic Name Dose Route Start Last Admin Trade Name Freq PRN Reason Stop Dose Admin Acetaminophen 650 mg 06/17/20 04:23 06/19/20 02:56 Acetaminophen 325 Mg Tablet PO 650 mg Q4H PRN Administration Mild Pain (1-3) or Fever Albuterol 6 puff 06/17/20 08:00 06/20/20 15:56 Albuterol Sulfate (*Sp) Aerosol 1 Puff INHALATION 6 puff QIDRT YA Administration Amlodipine Besylate 10 mg 06/17/20 09:00 06/20/20 08:42 Amlodipine Besy
[2020-06-20] MEDS: REMDESIVIR 100 MG/NS 250 ML 100 MG/250 ML BAG 250 MG IVPB (17:25)
[2020-06-20 18:07] LABS: Glucose Point of Care 285 (65-105)
[2020-06-20] MEDS: lisinopriL 20 MG TABLET PO (21:34)
[2020-06-20] MEDS: ATORVASTATIN 40 MG TABLET PO (21:34)
--- NOTE | 2020-06-20 21:43 | PC.NURSE ---
Pt glucose 61, refused gel. Gave apple juice
[2020-06-20 21:52] LABS: Glucose Point of Care 61 (65-105)
[2020-06-20 22:37] LABS: Glucose Point of Care 287 (65-105)
[2020-06-21] VITALS (9 sets, daily range): BP systolic 114–166; BP diastolic 56–92; PULSE 52–94; RESP 18–20; TEMP 36.4–36.7; O2SAT 91–100
[2020-06-21] MEDS: ACETAMINOPHEN 325 MG TABLET 650 MG PO (04:30)
[2020-06-21 06:28] LABS: Hematocrit 40.4 % (42.0-52.0); Hemoglobin 14.4 g/dL (14.0-18.0); Immature Granulocyte Absolute 0.02 K/mm3 (0.00-0.031); Immature Granulocyte Percent A 0.3 % (0-0.5); Lymphocytes Absolute Auto 1.33 K/mm3 (0.9-3.2); Mean Corpuscular HGB Conc 35.6 g/dl (32-36); Mean Corpuscular Volume 87.1 fl (80-100); Mean Platelet Volume 11.4 fl (7.4-10.4); Monocytes Absolute Auto 0.5 K/mm3 (0.1-0.6); Monocytes Percent Auto 7.4 % (2.6-8.5); Neutrophils Absolute Auto 5.1 K/mm3 (1.3-6.7); Neutrophils Percent Auto 73.3 % (45.5-73.1); Platelet Count Result 143 k/mm3 (150-375); Red Blood Count 4.64 M/mm3 (4.6-6.20); Red Cell Distribution Width 12.7 % (11.5-14.5)
[2020-06-21 06:47] LABS: Alanine Aminotransferase 24 U/L (4-50); Albumin Level 3.5 g/dL (3.5-5.1); Alkaline Phosphatase 48 U/L (38-126); Anion Gap 9 mmol/L (8-16); Aspartate Amino Transferase 39 U/L (17-59); Bilirubin,Total 0.6 mg/dL (0.2-1.3); Blood Urea Nitrogen 20 mg/dL (9-20); CRP 5.8 mg/dL (<1.0); Calcium 8.2 mg/dL (8.4-10.2); Carbon Dioxide 28 mmol/L (22-30); Chloride 100 mmol/L (98-107); Estimated CRCL calculation 64 ml/min; Estimated Glomerular Filt Rate > 60; Glucose 198 mg/dL (75-110); Lactate Dehydrogenase 851 U/L (313-618); Magnesium 2.1 mg/dL (1.6-2.3); Potassium 3.4 mmol/L (3.4-5.0); Sodium 137 mmol/L (137-145)
[2020-06-21] MEDS: amLODIPine BESYLATE 5 MG TABLET 10 MG PO (08:04)
[2020-06-21] MEDS: ENOXAPARIN 40 MG/0.4 ML SYRINGE SUB-Q (08:04)
[2020-06-21] MEDS: lisinopriL 20 MG TABLET 40 MG PO (08:04)
[2020-06-21] MEDS: DEXAMETHASONE SOD PHOS INJ 4 MG/ML VIAL 6 MG IV PUSH (08:04)
[2020-06-21] MEDS: SILVER SULFADIAZINE 1% CR 50 GM JAR (*BKC) 1 APPLIC TOPICAL ×2 (08:05→20:10)
[2020-06-21] MEDS: ALBUTEROL SULFATE (*SP) AEROSOL 1 PUFF 6 PUFF INHALATION ×4 (09:12→21:12)
[2020-06-21 10:24] LABS: Glucose Point of Care 172 (65-105)
[2020-06-21] MEDS: POTASSIUM CHLORIDE 20 MEQ TABLET PO (12:07)
[2020-06-21] MEDS: INSULIN ASPART (*BKC) 100 UNITS/ML SUB-Q ×2 (12:07→17:09)
[2020-06-21 12:12] LABS: Glucose Point of Care 268 (65-105)
--- NOTE | 2020-06-21 13:39 | PM.IMPN ---
Progress Note: A&P Assessment and Plan (1) Pneumonia due to COVID-19 virus: Code(s): U07.1 - COVID-19; J12.89 - Other viral pneumonia Status: Acute Assessment and Plan: COVID positive 06/16/20. CT shows patchy bilateral airspace disease. Continue remdesivir (day 3) and dexamethasone (day 3). Continue supportive therapy with tylenol for fevers, albuterol. Monitor oxygen saturations. Continue incentive spirometry. (2) Acute respiratory failure: Qualifiers: Respiratory failure complication: hypoxia Qualified Code(s): J96.01 - Acute respiratory failure with hypoxia Code(s): J96.00 - Acute respiratory failure, unspecified whether with hypoxia or hypercapnia Status: Acute Assessment and Plan: Secondary to above. Wean O2 as tolerated to keep saturations > 90%. (3) Generalized weakness: Code(s): R53.1 - Weakness Status: Acute Assessment and Plan: Suspect secondary to above. Continue PT/OT. (4) Acute hypokalemia: Code(s): E87.6 - Hypokalemia Status: Acute Assessment and Plan: Stable today. Monitor BMP + Mg and replace as needed. (5) Essential hypertension: Code(s): I10 - Essential (primary) hypertension Status: Chronic Assessment and Plan: Stable, last 114/62 maintained on his home amlodipine and lisinopril. Monitor BP and adjust treatment as needed. (6) Discharge planning issues: Code(s): Z02.9 - Encounter for administrative examinations, unspecified Status: Acute Assessment and Plan: Patient lives in [place], [place]. Daughter notes she is unable to transport him home at discharge due to him being COVID positive and her being immunosuppressed. Patient and family will need to work together to arrange someone to transport him home. Subjective Date/time seen: 06/21/20 1330 Interval history: Mr. Acevedo is a 75yo M admitted for acute respiratory failure with hypoxia secondary to COVID-19. He reports feeling a bit better today. Shortness of breath improved. He denies chest pain. Feels weak and tired. Tolerated some lunch without nausea or vomiting. Review of Systems Review of Systems: All systems reviewed & are unremarkable except as noted in HPI and below Exam Narrative: Exam Narrative: General: Male resting comfortably sitting up in bedside chair in no acute distress. HEENT: Normocephalic, EOMI, oral mucosa moist. Cardiovascular: Rate and rhythm are regular. Respiratory: Decreased breath sounds AIDA. Respirations are even and nonlabored. Tolerating 1 L nasal cannula. Abdomen: Soft, non-tender, non-distended, bowel sounds present. Extremities: Peripheral pulses intact. No edema. Neuro: No focal neurological deficits. Speech is clear. Objective Data Vital Signs Vital Signs: Last Vital Signs Temp 97.6 F 06/21/20 12:00 Pulse 69 06/21/20 12:00 Resp 18 06/21/20 12:00 BP 114/62 06/21/20 12:00 Pulse Ox 95 06/21/20 12:00 Intake/Output Intake/Output: Intake & Output 06/18/20 06/19/20 06/20/20 06/21/20 23:59 23:59 23:59 23:59 Intake Total 1700 1880 540 Output Total 1275 1450 900 Balance 425 430 -360 Meds/Results Medications: Active Medications Generic Name Dose Route Start Last Admin Trade Name Freq PRN Reason Stop Dose Admin Acetaminophen 650 mg 06/17/20 04:23 06/21/20 04:30 Acetaminophen 325 Mg Tablet PO 650 mg Q4H PRN Administration Mild Pain (1-3) or Fever Albuterol 6 puff 06/17/20 08:00 06/21/20 09:12 Albuterol Sulfate (*Sp) Aerosol 1 Puff INHALATION 6 puff QIDRT YA Administration Albuterol 2 puff 06/21/20 04:26 Albuterol Sulfate (*Sp) Aerosol 1 Puff INHALATION Q4H SC
[2020-06-21] MEDS: REMDESIVIR 100 MG/NS 250 ML 100 MG/250 ML BAG 250 MG IVPB (17:10)
[2020-06-21 17:39] LABS: Glucose Point of Care 295 (65-105)
[2020-06-21] MEDS: ATORVASTATIN 40 MG TABLET PO (20:09)
[2020-06-21] MEDS: lisinopriL 20 MG TABLET PO (20:09)
[2020-06-21 21:44] LABS: Glucose Point of Care 348 (65-105)
[2020-06-22] VITALS (7 sets, daily range): BP systolic 118–157; BP diastolic 74–88; PULSE 48–109; RESP 18–20; TEMP 36.1–36.7; O2SAT 92–96
[2020-06-22 06:35] LABS: Hematocrit 39.7 % (42.0-52.0); Hemoglobin 14.1 g/dL (14.0-18.0); Immature Granulocyte Absolute 0.02 K/mm3 (0.00-0.031); Immature Granulocyte Percent A 0.3 % (0-0.5); Lymphocytes Absolute Auto 1.18 K/mm3 (0.9-3.2); Lymphocytes Percent Auto 18.4 % (18.3-44.2); Mean Corpuscular HGB Conc 35.5 g/dl (32-36); Mean Corpuscular Hemoglobin 31.3 pg (26-34); Mean Corpuscular Volume 88.2 fl (80-100); Mean Platelet Volume 11.1 fl (7.4-10.4); Monocytes Absolute Auto 0.7 K/mm3 (0.1-0.6); Monocytes Percent Auto 10.5 % (2.6-8.5); Neutrophils Absolute Auto 4.5 K/mm3 (1.3-6.7); Neutrophils Percent Auto 70.8 % (45.5-73.1); Platelet Count Result 153 k/mm3 (150-375); Red Cell Distribution Width 12.7 % (11.5-14.5); White Blood Count 6.4 K/mm3 (4.5-10.0)
[2020-06-22 06:50] LABS: Alanine Aminotransferase 25 U/L (4-50); Albumin Level 3.3 g/dL (3.5-5.1); Alkaline Phosphatase 46 U/L (38-126); Anion Gap 7 mmol/L (8-16); Aspartate Amino Transferase 37 U/L (17-59); Bilirubin,Total 0.6 mg/dL (0.2-1.3); Blood Urea Nitrogen 18 mg/dL (9-20); Calcium 8.1 mg/dL (8.4-10.2); Carbon Dioxide 28 mmol/L (22-30); Chloride 102 mmol/L (98-107); Estimated CRCL calculation 64 ml/min; Estimated Glomerular Filt Rate > 60; Glucose 221 mg/dL (75-110); Magnesium 2.1 mg/dL (1.6-2.3); Potassium 3.7 mmol/L (3.4-5.0); Sodium 137 mmol/L (137-145)
[2020-06-22] MEDS: PHENOL/SOD PHENO SPRAY CHERRY (*BKC) 1 SPRAY MUCOUS MEM (08:10)
[2020-06-22] MEDS: amLODIPine BESYLATE 5 MG TABLET 10 MG PO (08:11)
[2020-06-22] MEDS: DEXAMETHASONE SOD PHOS INJ 4 MG/ML VIAL 6 MG IV PUSH (08:12)
[2020-06-22] MEDS: SILVER SULFADIAZINE 1% CR 50 GM JAR (*BKC) 1 APPLIC TOPICAL ×2 (08:12→20:55)
[2020-06-22] MEDS: ENOXAPARIN 40 MG/0.4 ML SYRINGE SUB-Q (08:12)
[2020-06-22] MEDS: INSULIN ASPART (*BKC) 100 UNITS/ML SUB-Q ×3 (08:24→18:15)
[2020-06-22] MEDS: ALBUTEROL SULFATE (*SP) AEROSOL 1 PUFF 6 PUFF INHALATION ×4 (09:28→20:47)
[2020-06-22 09:58] LABS: Glucose Point of Care 204 (65-105)
[2020-06-22] MEDS: lisinopriL 20 MG TABLET 40 MG PO (10:21)
[2020-06-22 12:42] LABS: Glucose Point of Care 352 (65-105)
--- NOTE | 2020-06-22 14:03 | PM.IMPN ---
Progress Note: A&P Assessment and Plan (1) Pneumonia due to COVID-19 virus: Code(s): U07.1 - COVID-19; J12.89 - Other viral pneumonia Status: Acute Assessment and Plan: COVID positive 06/16/20. CT shows patchy bilateral airspace disease. Continue remdesivir (day 4) and dexamethasone (day 4). Continue supportive therapy with tylenol for fevers, albuterol. Monitor oxygen saturations. Continue incentive spirometry. (2) Acute respiratory failure: Qualifiers: Respiratory failure complication: hypoxia Qualified Code(s): J96.01 - Acute respiratory failure with hypoxia Code(s): J96.00 - Acute respiratory failure, unspecified whether with hypoxia or hypercapnia Status: Acute Assessment and Plan: Secondary to above. Tolerating room air today. (3) Generalized weakness: Code(s): R53.1 - Weakness Status: Acute Assessment and Plan: Suspect secondary to above. Improving today. Continue PT/OT. (4) Essential hypertension: Code(s): I10 - Essential (primary) hypertension Status: Chronic Assessment and Plan: Stable, last 118/74 maintained on his home amlodipine and lisinopril. Monitor BP and adjust treatment as needed. (5) Pre-diabetes: Code(s): R73.03 - Prediabetes Status: Acute Assessment and Plan: With elevated blood sugars. A1c is 6.5. Will add scheduled novolog for now; continue to monitor with accu-cheks and cover with SSI. Subjective Date/time seen: 06/22/20 1330 Interval history: Mr. Acevedo is a 75yo M admitted for acute respiratory failure with hypoxia secondary to COVID-19. He is feeling well today and off oxygen since this morning. His shortness of breath is improved. He is feeling a bit stronger today. Not eating much but appetite is a little improved. Worked well with therapy and walked in the room off oxygen with saturation as low as 93% on room air. With patient's permission I called and spoke with daughter, Izabel, to discuss updates and plan of care. Review of Systems Review of Systems: All systems reviewed & are unremarkable except as noted in HPI and below Exam Narrative: Exam Narrative: General: Male resting comfortably sitting up in bed in no acute distress. HEENT: Normocephalic, EOMI, oral mucosa moist. Cardiovascular: Rate and rhythm are regular. Respiratory: Decreased breath sounds AIDA. Respirations are even and nonlabored. Tolerating room air. Abdomen: Soft, non-tender, non-distended, bowel sounds present. Extremities: Peripheral pulses intact. No edema. Neuro: No focal neurological deficits. Speech is clear. Objective Data Vital Signs Vital Signs: Last Vital Signs Temp 97.0 F L 06/22/20 12:00 Pulse 61 06/22/20 12:00 Resp 18 06/22/20 12:00 BP 118/74 06/22/20 12:00 Pulse Ox 93 06/22/20 12:00 Intake/Output Intake/Output: Intake & Output 06/19/20 06/20/20 06/21/20 06/22/20 23:59 23:59 23:59 23:59 Intake Total 1700 1880 1400 520 Output Total 1275 1450 1700 750 Balance 425 430 -300 -230 Meds/Results Medications: Active Medications Generic Name Dose Route Start Last Admin Trade Name Freq PRN Reason Stop Dose Admin Acetaminophen 650 mg 06/17/20 04:23 06/21/20 04:30 Acetaminophen 325 Mg Tablet PO 650 mg Q4H PRN Administration Mild Pain (1-3) or Fever Albuterol 6 puff 06/17/20 08:00 06/22/20 13:27 Albuterol Sulfate (*Sp) Aerosol 1 Puff INHALATION 6 puff QIDRT YA Administration Albuterol 2 puff 06/21/20 04:26 Albuterol Sulfate (*Sp) Aerosol 1 Puff INHALATION Q4H PRN Shortness Of Breath Amlodipine Besylate 10 mg 06/17/20 09:00 06/22/20 08:11 Amlodipine Besylate 5 Mg Tablet PO 10 mg DAILY [facility] Admini
[2020-06-22] MEDS: INSULIN ASPART (*BKC) 100 UNITS/ML 6 UNITS SUB-Q (18:16)
[2020-06-22] MEDS: REMDESIVIR 100 MG/NS 250 ML 100 MG/250 ML BAG 250 MG IVPB (18:17)
[2020-06-22 19:01] LABS: Glucose Point of Care 301 (65-105)
[2020-06-22] MEDS: ATORVASTATIN 40 MG TABLET PO (20:55)
[2020-06-22] MEDS: lisinopriL 20 MG TABLET PO (20:55)
[2020-06-22 22:38] LABS: Glucose Point of Care 388 (65-105)
[2020-06-23] VITALS: BP 125/72; PULSE 77; RESP 18; TEMP 36.3; O2SAT 95
[2020-06-23 04:00] VITALS: BP 150/77; PULSE 87; RESP 18; TEMP 36.5; O2SAT 96
[2020-06-23 07:14] LABS: Alanine Aminotransferase 30 U/L (4-50); Albumin Level 3.2 g/dL (3.5-5.1); Alkaline Phosphatase 47 U/L (38-126); Anion Gap 9 mmol/L (8-16); Aspartate Amino Transferase 33 U/L (17-59); Bilirubin,Total 0.7 mg/dL (0.2-1.3); Blood Urea Nitrogen 15 mg/dL (9-20); CRP 2.4 mg/dL (<1.0); Calcium 8.1 mg/dL (8.4-10.2); Carbon Dioxide 25 mmol/L (22-30); Chloride 102 mmol/L (98-107); Estimated CRCL calculation 79 ml/min; Estimated Glomerular Filt Rate > 60; Glucose 235 mg/dL (75-110); Lactate Dehydrogenase 756 U/L (313-618); Potassium 3.4 mmol/L (3.4-5.0); Sodium 136 mmol/L (137-145)
[2020-06-23] MEDS: ALBUTEROL SULFATE (*SP) AEROSOL 1 PUFF 6 PUFF INHALATION ×3 (07:56→15:37)
[2020-06-23 07:57] VITALS: O2SAT 95
[2020-06-23 08:00] VITALS: BP 130/85; PULSE 62; RESP 20; TEMP 36.5; O2SAT 95
[2020-06-23 08:37] LABS: Hematocrit 32.1 % (42.0-52.0); Hemoglobin 13.6 g/dL (14.0-18.0); Immature Granulocyte Absolute 0.02 K/mm3 (0.00-0.031); Immature Granulocyte Percent A 0.4 % (0-0.5); Lymphocytes Absolute Auto 0.96 K/mm3 (0.9-3.2); Lymphocytes Percent Auto 20.5 % (18.3-44.2); Mean Corpuscular HGB Conc 42.4 g/dl (32-36); Mean Corpuscular Hemoglobin 38.4 pg (26-34); Mean Corpuscular Volume 90.7 fl (80-100); Mean Platelet Volume 11.8 fl (7.4-10.4); Monocytes Absolute Auto 0.5 K/mm3 (0.1-0.6); Monocytes Percent Auto 10.3 % (2.6-8.5); Neutrophils Absolute Auto 3.2 K/mm3 (1.3-6.7); Neutrophils Percent Auto 68.8 % (45.5-73.1); Platelet Count Result 174 k/mm3 (150-375); Red Blood Count 3.54 M/mm3 (4.6-6.20); Red Cell Distribution Width 12.8 % (11.5-14.5); White Blood Count 4.7 K/mm3 (4.5-10.0)
[2020-06-23] MEDS: INSULIN ASPART (*BKC) 100 UNITS/ML SUB-Q ×2 (09:04→12:38)
[2020-06-23 09:05] LABS: Glucose Point of Care 233 (65-105)
[2020-06-23] MEDS: POTASSIUM CHLORIDE 20 MEQ TABLET 40 MEQ PO (09:05)
[2020-06-23] MEDS: INSULIN ASPART (*BKC) 100 UNITS/ML 6 UNITS SUB-Q ×2 (09:05→12:38)
[2020-06-23] MEDS: DEXAMETHASONE SOD PHOS INJ 4 MG/ML VIAL 6 MG IV PUSH (09:06)
[2020-06-23] MEDS: lisinopriL 20 MG TABLET 40 MG PO (09:07)
[2020-06-23] MEDS: ENOXAPARIN 40 MG/0.4 ML SYRINGE SUB-Q (09:07)
[2020-06-23] MEDS: amLODIPine BESYLATE 5 MG TABLET 10 MG PO (09:07)
[2020-06-23] MEDS: SILVER SULFADIAZINE 1% CR 50 GM JAR (*BKC) 1 APPLIC TOPICAL (09:07)
[2020-06-23] MEDS: guaiFENesin/DEXTROMETHORPHAN 10 ML UDC PO (09:11)
--- NOTE | 2020-06-23 11:46 | PCNWS ---
Weekly nutritional screen. Patient is tolerating current diet with adequate intake. No weight loss reported. No nutritional needs at this time.
[2020-06-23 12:00] VITALS: BP 150/84; PULSE 88; RESP 20; TEMP 36.7; O2SAT 96
[2020-06-23 12:22] LABS: Glucose Point of Care 354 (65-105)
--- NOTE | 2020-06-23 13:24 | PM.DS ---
DS: Admitting Diagnosis Admitting Diagnosis Admitting Diagnosis: Pneumonia, Vertigo, Hypokalemia DS: Discharge Diagnosis Discharge Diagnosis (1) Pneumonia due to COVID-19 virus: Code(s): U07.1 - COVID-19; J12.89 - Other viral pneumonia Status: Acute Assessment and Plan: Date of Admission 06/16/20 Date of Discharge/DOS 06/23/20 Mr. Acevedo is a 75yo M with history of hypertension and pre-diabetes who presented to the ED for evaluation of generalized weakness and shortness of breath. He tested positive for COVID-19 on 06/16/20 CT chest showed findings consistent with bilateral pneumonia. Initially, he was tolerating room air with adequate oxygen saturations on arrival. The following day, he did become hypoxic requiring supplemental oxygen thus meeting criteria to begin steroids and antiviral therapy. He was treated with 5 days of dexamethasone and 5 days of remdesivir therapy while inpatient. He continued to show improvement in his respiratory symptoms and worked well with PT/OT to regain strength. He improved and was able to come off supplemental O2 prior to discharge. He was hemodynamically stable for discharge 06/23/20 with instructions to monitor his symptoms closely and to follow up with his PCP in 1 week. A1c noted to be 6.5%. Follow up with PCP. COVID positive 06/16/20. CT shows patchy bilateral airspace disease. Treated with remdesivir (day 5) and dexamethasone (day 5). Treated with supportive therapy with tylenol for fevers, albuterol. Continue incentive spirometry. (2) Acute respiratory failure: Qualifiers: Respiratory failure complication: hypoxia Qualified Code(s): J96.01 - Acute respiratory failure with hypoxia Code(s): J96.00 - Acute respiratory failure, unspecified whether with hypoxia or hypercapnia Status: Acute Assessment and Plan: Secondary to above. Tolerating room air today. (3) Generalized weakness: Code(s): R53.1 - Weakness Status: Acute Assessment and Plan: Suspect secondary to above. Improving today. PT/OT. (4) Essential hypertension: Code(s): I10 - Essential (primary) hypertension Status: Chronic Assessment and Plan: Stable maintained on his home amlodipine and lisinopril. (5) Pre-diabetes: Code(s): R73.03 - Prediabetes Status: Acute Assessment and Plan: With elevated blood sugars. A1c is 6.5. Treated with sliding scale insulin while hospitalized. Follow up with PCP. DS: Summary Time Spent with Patient Time attestation: Total time spent providing and/or coordinating discharge services: 45 minutes Exam Narrative: Exam Narrative: General: Male resting comfortably sitting up in bed in no acute distress. HEENT: Normocephalic, EOMI, oral mucosa moist. Cardiovascular: Rate and rhythm are regular. Respiratory: Decreased breath sounds AIDA. Respirations are even and nonlabored. Tolerating room air. Abdomen: Soft, non-tender, non-distended, bowel sounds present. Extremities: Peripheral pulses intact. No edema. Neuro: No focal neurological deficits. Speech is clear. DS: Data Data Completed and Pending Labs on day of discharge: Last Vital Signs Temp 98.0 F 06/23/20 12:00 Pulse 88 06/23/20 12:00 Resp 20 06/23/20 12:00 BP 150/84 H 06/23/20 12:00 Pulse Ox 96 06/23/20 12:00 ITS Impressions Chest X-Ray 06/16/20 13:32 IMPRESSION: Ill-defined increased density overlying the posterior right mid lung; CT thorax is recommended to exclude pulmonary mass lesion Head CT 06/16/20 17:50 IMPRESSION: 1. No acute intracranial abnormality. Chest CT 06/16/20 17:53 IMPRESSION: 1. Patchy bilateral airspace consoli
--- NOTE | 2020-06-23 13:53 | PCPTNOTE ---
The PT treatment was unable to be completed today. Patient is discharging home and declined.
[2020-06-23] MEDS: REMDESIVIR 100 MG/NS 250 ML 100 MG/250 ML BAG 250 MG IVPB (14:10)
== END 2020-06-23 15:55 | disposition home or self-care (01) | DRG 177 ==
LOC: ANHED 18:59 → ANH3MEDSUR 21:10
PROVIDERS: Emergency Medicine; Internal Medicine; Physician Assistant; Admitting Provider Family Medicine; Emergency Provider Emergency Medicine; Visit Provider Physician Assistant
DX: U07.1 COVID-19 (principal); J12.89 Other viral pneumonia; J96.01 Acute respiratory failure with hypoxia; E87.6 Hypokalemia; R53.1 Weakness; T25.022A Burn of unspecified degree of left foot, initial encounter; X12.XXXA Contact with other hot fluids, initial encounter; H81.10 Benign paroxysmal vertigo, unspecified ear; G47.33 Obstructive sleep apnea (adult) (pediatric); I10 Essential (primary) hypertension; R73.03 Prediabetes; E78.5 Hyperlipidemia, unspecified; I71.4 Abdominal aortic aneurysm, without rupture; K43.2 Incisional hernia without obstruction or gangrene; H26.9 Unspecified cataract; Z87.891 Personal history of nicotine dependence
CPT/HCPCS: 36415; 70450; 71045; 71046; 71250; 80048; 80053; 80076; 81001; 82728; 83036; 83605; 83615; 83735; 84484; 85025; 85027; 85055; 85380; 86140; 87040; 87635; 87804; 93005; 94640; 96374; 97110; 97116; 97161; 97165; 97530; 97535; 99285; A9270; C9803; J0456; J0696; J1100; J1650; J1815; J2405; J3360; J7120; U0003

== ENCOUNTER 2021-03-20 14:22 | Emergency (ER) | payer MEDICARE, SELFPAY ==
[2021-03-20] VITALS (18 sets, daily range): BP systolic 122–170; BP diastolic 68–97; PULSE 76–96; RESP 18–20; TEMP 36.7; O2SAT 94–99
--- NOTE | ~2021-03-20 | XR_ITS ---
EXAMINATION: XR chest 1V portable INDICATION: Cough and congestion TECHNIQUE: Portable AP chest at 1454 hours COMPARISON: 06/19/2020 FINDINGS: There are minimal airspace opacities of the lung bases. No pleural effusion or pneumothorax is identified. The cardiomediastinal silhouette is normal. IMPRESSION: 1. Minimal airspace opacities of the lung bases which could reflect atelectasis versus pneumonia vers us scarring. Reviewed, dictated and finalized at location A. IMPRESSION: 1. Minimal airspace opacities of the lung bases which could reflect atelectasis versus pneumonia versus scarring.
--- NOTE | 2021-03-20 15:50 | ED.URI ---
HPI - URI/Sore Throat General Chief Complaint: Upper Respiratory Infection Stated Complaint: Congestion,cough,sorethroat Time Seen by Provider: 03/20/21 15:15 Source: patient Mode of arrival: ambulatory Limitations: no limitations History of Present Illness HPI Narrative: This is a 75-year-old male that presents to the emergency department for cold symptoms x3 days. Reports cough, congestion, and sore throat. Reports he has had trouble with shortness of breath since he had Covid at the end of last year. He denies any current chest pain or shortness of breath. Denies fever. Related Data Home Medications Medication Instructions Recorded Confirmed amlodipine 10 mg PO DAILY 06/17/20 06/17/20 atorvastatin 40 mg PO HS 06/17/20 06/17/20 cetirizine 10 mg PO DAILY PRN 06/17/20 06/17/20 lisinopril 20 mg PO HS 06/17/20 06/17/20 lisinopril 40 mg PO DAILY 06/17/20 06/17/20 Allergies Allergy/AdvReac Type Severity Reaction Status Date / Time TOLACTINE Allergy Intermediate Nausea and Uncoded 03/20/21 14:43 Vomiting Review of Systems Review of Systems: CONSTITUTIONAL: Denies fever ENT: Reports rhinorrhea, congestion, sore throat CARDIOVASCULAR: Denies chest pain, or edema. RESPIRATORY: Reports cough. Denies dyspnea. All systems reviewed & are unremarkable except as noted in HPI and below PMFSH Past Medical History Medical History (Updated 03/20/21 @ 17:23 by Elvia Argueta PA-C) Abdominal aortic aneurysm (AAA) Followed at the [facility] Cataracts, bilateral Will need cataract surgery in the near future per his report Essential hypertension Hyperlipidemia Incisional hernia Left abdominal wall Obstructive sleep apnea Surgical History Surgical History (Updated 06/17/20 @ 04:34 by Thais Davenport DO) History of ankle surgery Multiple left ankle surgeries due to trauma complicated by reflex sympathetic dystrophy for which he had a open abdominal surgery History of hand surgery Following trauma during the [place] war History of lumbar surgery Family History Family History (Updated 06/17/20 @ 04:37 by Thais Davenport DO) Father , At 60 years old Acute myocardial infarction Hypertension Lung cancer Mother , At 64 years old Hypertension Lung cancer Breast cancer Sibling Liver disease Due to drug use Heart disease Cancer Social History Social History (Updated 06/17/20 @ 04:41 by Thais Davenport DO) Social History: He lives in in [facility]. He and his had been for over 20 years. He moved back in with his in the last couple of years to help provide care she is disabled. He has 1 daughter. He is a former smoker. He used to smoke up to 2 packs of cigarettes per day for 20 years but quit smoking in the . 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 He had 3 siblings. Two sisters and 1 brother all are . Primary care physician: [facility] in [facility]. Code status: Full code Surrogate decision maker: Izabel Kaur (daughter) Smoking status: Former smoker Smoking end date: 08/18/82 Alcohol intake: former Substance use: never Substance use type: does not use Additional occupation/education comments: He is retired from the railroad. He served [employer] during the [place] War for 6 years. Gender identity (if verbalized by the patient): Male Spiritual care concerns: No Agree to blood products: No Exam Narrative: GENERAL: Elderly, well-nourished, and in no acute distress. HEAD: Normocephalic, atraumatic. EYES: EOMI. ENT: Nares clear, no rhinorrhea or epistaxis. Mucous membranes moist. Oropharynx without tonsillar hypertrophy exudate or other lesions. Bilateral TMs pearly franco non-bulging NECK: Supple. No adenopathy or masses. CHEST: Clear to auscultation. No respiratory distress. No wheezes rales o
[2021-03-20 16:14] LABS: Basophils Percent Auto 0.4 % (0.2-1.2); Eosinophils Absolute Auto 0.2 K/mm3 (0-0.3); Eosinophils Percent Auto 4.3 % (0-4.4); Hematocrit 40.7 % (42.0-52.0); Hemoglobin 14.3 g/dL (14.0-18.0); Immature Granulocyte Absolute 0.01 K/mm3 (0.00-0.031); Immature Granulocyte Percent A 0.2 % (0-0.5); Lymphocytes Absolute Auto 1.16 K/mm3 (0.9-3.2); Lymphocytes Percent Auto 20.6 % (18.3-44.2); Mean Corpuscular HGB Conc 35.1 g/dl (32-36); Mean Corpuscular Hemoglobin 30.6 pg (26-34); Mean Corpuscular Volume 87.2 fl (80-100); Mean Platelet Volume 9.8 fl (7.4-10.4); Monocytes Absolute Auto 0.8 K/mm3 (0.1-0.6); Monocytes Percent Auto 13.8 % (2.6-8.5); Neutrophils Absolute Auto 3.4 K/mm3 (1.3-6.7); Neutrophils Percent Auto 60.7 % (45.5-73.1); Platelet Count Result 167 k/mm3 (150-375); Red Blood Count 4.67 M/mm3 (4.6-6.20); Red Cell Distribution Width 13.2 % (11.5-14.5); White Blood Count 5.6 K/mm3 (4.5-10.0)
[2021-03-20 16:26] LABS: Anion Gap 9 mmol/L (8-16); Blood Urea Nitrogen 9 mg/dL (9-20); Calcium 9.1 mg/dL (8.4-10.2); Carbon Dioxide 30 mmol/L (22-30); Chloride 102 mmol/L (98-107); Estimated CRCL calculation 52 ml/min; Estimated Glomerular Filt Rate > 60; Glucose 149 mg/dL (65-110); Potassium 3.2 mmol/L (3.4-5.0); Sodium 141 mmol/L (137-145)
[2021-03-20] MEDS: POTASSIUM CHLORIDE 20 MEQ TABLET PO (17:14)
[2021-03-21 18:06] LABS: SARS-CoV-2 RNA PCR Negative
== END 2021-03-20 17:38 | disposition home or self-care (01) ==
PROVIDERS: Physician Assistant; Emergency Provider Emergency Medicine
DX: Z20.822 Contact with and (suspected) exposure to COVID-19 (principal); J18.9 Pneumonia, unspecified organism; E87.6 Hypokalemia; I10 Essential (primary) hypertension; E78.5 Hyperlipidemia, unspecified
CPT/HCPCS: 36415; 71045; 80048; 85025; 87081; 87804; 87880; 99283; A9270; C9803; U0003; U0005

== ENCOUNTER 2022-06-03 11:49 | Emergency (ER) | payer MEDICARE, SELFPAY ==
--- NOTE | ~2022-06-03 | XR_ITS ---
EXAMINATION: XR shoulder LT min 2V INDICATION: Left shoulder pain TECHNIQUE: Four views of the left shoulder are submitted. COMPARISON: 06/19/2020 FINDINGS: Normal alignment. No fracture. 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 Soft tissues are unremarkable. IMPRESSION: 1. Osteoarthritis without acute osseous abnormality. Reviewed, dictated and finalized at location A.
[2022-06-03 12:04] VITALS: BP 162/99; PULSE 71; RESP 18; TEMP 36.4; O2SAT 98
--- NOTE | 2022-06-03 13:54 | ED.UPPEXIN ---
HPI - Extremity Injury (Upper) General Chief Complaint: Extremity Injury, Upper Stated Complaint: fall - arm injury Time Seen by Provider: 06/03/22 13:10 Source: patient Mode of arrival: wheelchair Limitations: no limitations History of Present Illness HPI narrative: This is a 76-year-old male that presents to the emergency department after ground-level fall last night with left shoulder injury. Reports he lost his balance and fell onto his left shoulder. He did not hit his head or lose consciousness. No other injuries. Reports decreased range of motion of the left shoulder due to pain. Denies numbness. Related Data Home Medications Medication Instructions Recorded Confirmed amlodipine 10 mg tablet 10 mg PO DAILY 06/17/20 06/17/20 atorvastatin 40 mg tablet 40 mg PO HS 06/17/20 06/17/20 cetirizine 10 mg tablet 10 mg PO DAILY PRN Allergic 06/17/20 06/17/20 Reaction lisinopril 20 mg tablet 20 mg PO HS 06/17/20 06/17/20 lisinopril 40 mg tablet 40 mg PO DAILY 06/17/20 06/17/20 Allergies Allergy/AdvReac Type Severity Reaction Status Date / Time TOLACTINE Allergy Intermediate Nausea and Uncoded 06/03/22 12:54 Vomiting Review of Systems Review of Systems: CONSTITUTIONAL: Denies fever GASTROINTESTINAL: Denies vomiting MUSCULOSKELETAL: Reports joint pain and myalgia. Denies back pain NEUROLOGIC: Denies numbness, or weakness. All systems reviewed & are unremarkable except as noted in HPI and below PMFSH Past Medical History Medical History (Updated 06/03/22 @ 13:59 by Elvia Argueta PA-C) Abdominal aortic aneurysm (AAA) Followed at the [facility] Cataracts, bilateral Will need cataract surgery in the near future per his report Essential hypertension Hyperlipidemia Incisional hernia Left abdominal wall Obstructive sleep apnea Surgical History Surgical History (Updated 06/17/20 @ 04:34 by Thais Davenport DO) History of ankle surgery Multiple left ankle surgeries due to trauma complicated by reflex sympathetic dystrophy for which he had a open abdominal surgery History of hand surgery Following trauma during the [place] war History of lumbar surgery Family History Family History (Updated 06/17/20 @ 04:37 by Thais Davenport DO) Father , At 60 years old Acute myocardial infarction Hypertension Lung cancer Mother , At 64 years old Hypertension Lung cancer Breast cancer Sibling Liver disease Due to drug use Heart disease Cancer Social History Social History (Updated 06/17/20 @ 04:41 by Thais Davenport DO) Social History: He lives in in [facility]. He and his had been for over 20 years. He moved back in with his in the last couple of years to help provide care she is disabled. He has 1 daughter. He is a former smoker. He used to smoke up to 2 packs of cigarettes per day for 20 years but quit smoking in the . 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 He had 3 siblings. Two sisters and 1 brother all are . Primary care physician: [facility] in [facility]. Code status: Full code Surrogate decision maker: Izabel Kaur (daughter) Smoking status: Former smoker Smoking end date: 08/18/82 Alcohol intake: former Substance use: never Substance use type: does not use Additional occupation/education comments: He is retired from the railroad. He served [employer] during the [place] War for 6 years. Gender identity (if verbalized by the patient): Male Sexual Orientation (if Verbalized by the Patient): Straight or Heterosexual Spiritual care concerns: No Agree to blood products: No Exam Narrative: GENERAL: Well-appearing, well-nourished, and in no acute distress. HEAD: Normocephalic, atraumatic. EYES: PERRLA and EOMI. ENT: Nares clear, no rhinorrhea or epistaxis. Mucous membranes moist. Orophar
[2022-06-03 14:22] VITALS: BP 149/85; PULSE 74; RESP 16; O2SAT 96
== END 2022-06-03 14:23 | disposition home or self-care (01) ==
PROVIDERS: Emergency Provider Emergency Medicine
DX: S49.92XA Unspecified injury of left shoulder and upper arm, initial encounter (principal); I71.40 Abdominal aortic aneurysm, without rupture, unspecified; I10 Essential (primary) hypertension; E78.5 Hyperlipidemia, unspecified; H26.9 Unspecified cataract; G47.33 Obstructive sleep apnea (adult) (pediatric); Z87.891 Personal history of nicotine dependence; M19.012 Primary osteoarthritis, left shoulder; W18.39XA Other fall on same level, initial encounter
CPT/HCPCS: 73030; 99283; A4565